=== PATIENT | male | born 1985 | race Asian ===

== ENCOUNTER 2020-01-09 21:31 | Emergency (ER) | payer MEDICAID ==
[~2020-01-09] VITALS: Ht 180.3 cm; Wt 133.8 kg
[2020-01-09 21:35] VITALS: Ht 180.3 cm; Wt 133.8 kg
[2020-01-09 23:01] VITALS: BP 168/99
== END 2020-01-09 23:21 | disposition home or self-care (01) ==
LOC: ED 21:31
DX: J20.8 Acute bronchitis due to other specified organisms (principal); E11.9 Type 2 diabetes mellitus without complications; R06.4 Hyperventilation; R03.0 Elevated blood-pressure reading, without diagnosis of hypertension; I51.7 Cardiomegaly
CPT/HCPCS: 82962